=== PATIENT | female | born 1970 | race African-American/Black ===

== ENCOUNTER 2017-10-27 12:10 | Outpatient (CLI) | payer BC ==
--- NOTE | 2017-10-27 14:22 | RAD ---
SEVEN VIEWS OF THE LUMBAR SPINE: DATE: 10/27/17. COMPARISON: None. HISTORY: Low back pain. FINDINGS: Images include frontal, bilateral oblique, neutral lateral, coned down lateral, flexion lateral, and extension lateral views. FINDINGS: The frontal radiograph demonstrates 5 lumbar-type vertebral bodies with intact pedicles on frontal im aging. The oblique imaging demonstrates no evidence for a pars defect on either side at any level. Lateral, neutral, flexion, and extension imaging demonstrates no evidence for anterolisthesis or retr olisthesis. There is mild anterior osteophyte formation at T12-L1, L1-2, and L2-3. No acute osseous abnormality. IMPRESSION: No acute findings. POS: [facility]
== END 2017-10-27 12:11 | disposition home or self-care (01) ==
LOC: RAD 12:10
PROVIDERS: ATTEND Chiropractor
DX: M54.5 Low back pain (principal)
CPT/HCPCS: 72100

== ENCOUNTER 2018-08-05 21:11 | Emergency (ER) | payer BC ==
[2018-08-05 22:41] LABS: #Basophils 0.1 thou/uL (0.0-0.2); #Eosinphils 0.1 thou/uL (0.0-0.7); #Lymphocytes 2.3 thou/uL (1.20-3.40); #Monocytes 0.6 thou/uL (0.11-0.59); #Neutrophils 4.9 thou/uL (1.40-6.50); %Basophils 0.9 % (0.0-1.0); %Eosinophils 1.6 % (0.0-10.0); %Lymphocytes 29.1 % (21.0-51.0); %Monocytes 7.5 % (0.0-10.0); %Neutrophils 60.9 % (42.0-75.0); Mean Corpuscular HGB CONC 32.8 g/dL (32.0-36.0); Mean Corpuscular Hemoglobin 28.1 pg (27.0-31.0); Mean Corpuscular Volume 85.9 fL (78.0-98.0); Mean Platelet Volume 8.2 fL (7.4-10.4); Platelet Count 318 thou/uL (130-400); RBC Distribution Width 12.8 % (11.5-14.5); Red Blood Cell (RBC) Count 4.97 mill/uL (4.20-5.40)
[2018-08-05] MEDS ORDERED: Diazepam 5 MG TAB ONE (23:03)
[2018-08-05 23:05] LABS: ALT (SGPT) 12 U/L (8-55); AST (SGOT) 13 U/L (5-34); Acetaminophen Less than 6.0 mcg/mL (10.0-30.0); Albumin 4.3 g/dL (3.5-5.0); Alcohol Less than 10 mg/dL (Less than 10); Alkaline Phosphatase 99 U/L (40-150); Anion Gap 13 mmol/L (10-20); BUN (Urea Nitrogen) 7 mg/dL (7.0-18.7); Bilirubin, Total 0.5 mg/dL (0.2-1.2); Calc. Creatinine Clearance 0 mL/min (70-130); Calcium 9.6 mg/dL (7.8-10.44); Carbon Dioxide 23 mmol/L (22-29); Chloride 104 mmol/L (98-107); Estimated GFR-MDRD Greater than 90; Globulin 4.1 g/dL (2.4-3.5); Glucose 116 mg/dL (70-105); Potassium 3.4 mmol/L (3.5-5.1); Protein, Total 8.4 g/dL (6.0-8.3); Salicylate Less than 8.0 mg/dL (15.0-30.0); Sodium 137 mmol/L (136-145)
[2018-08-05 23:06] LABS: Alcohol Less than 10 mg/dL (Less than 10); CK (CPK) 167 U/L (29-168)
== END 2018-08-06 00:55 | disposition home or self-care (01) ==
LOC: ERS 21:11
DX: F41.9 Anxiety disorder, unspecified (principal)
CPT/HCPCS: 36415; 80053; 80307; 82550; 84443; 85025; 94760

== ENCOUNTER 2018-11-13 18:25 | Emergency (ER) | payer BC ==
[2018-11-13 19:33] LABS: #Eosinphils 0.1 thou/uL (0.0-0.7); #Lymphocytes 2.1 thou/uL (1.20-3.40); #Monocytes 0.8 thou/uL (0.11-0.59); #Neutrophils 5.2 thou/uL (1.40-6.50); %Basophils 0.5 % (0.0-1.0); %Eosinophils 1.8 % (0.0-10.0); %Neutrophils 62.7 % (42.0-75.0); Hemoglobin 13.6 g/dL (12.0-16.0); Mean Corpuscular HGB CONC 34.2 g/dL (32.0-36.0); Mean Corpuscular Hemoglobin 29.4 pg (27.0-31.0); Mean Platelet Volume 8.6 fL (7.4-10.4); Platelet Count 300 thou/uL (130-400); RBC Distribution Width 12.8 % (11.5-14.5); Red Blood Cell (RBC) Count 4.63 mill/uL (4.20-5.40); White Blood Cell (WBC) Count 8.3 thou/uL (4.8-10.8)
[2018-11-13 19:36] LABS: Bilirubin Negative (Negative); Blood, Urine Negative (Negative); Clarity Clear (Clear); Glucose, Urine (Dipstick) Normal (Negative); Leukocyte Negative Leu/uL (Negative); Nitrite Negative (Negative); Protein, Urine (Dipstick) 10 mg/dL (Neg-Trace); Urobilinogen Normal mg/dL (Less than 2)
[2018-11-13 19:53] LABS: ALT (SGPT) 11 U/L (8-55); AST (SGOT) 14 U/L (5-34); Alkaline Phosphatase 93 U/L (40-110); Anion Gap 14 mmol/L (10-20); BUN (Urea Nitrogen) 15 mg/dL (7.0-18.7); Bilirubin, Total 0.3 mg/dL (0.2-1.2); Calc. Creatinine Clearance 0 mL/min (70-130); Calcium 9.5 mg/dL (7.8-10.44); Carbon Dioxide 25 mmol/L (22-29); Chloride 103 mmol/L (98-107); Estimated GFR-MDRD Greater than 90; Globulin 3.9 g/dL (2.4-3.5); Glucose 101 mg/dL (70-105); Lipase 37 U/L (8-78); Potassium 3.7 mmol/L (3.5-5.1); Protein, Total 7.9 g/dL (6.0-8.3); Sodium 138 mmol/L (136-145)
[2018-11-13] MEDS ORDERED: Dicyclomine 20 MG TAB ONE (20:10)
[2018-11-13] MEDS ORDERED: Mag-Al 1200 mg/1200 mg/30 ML UDCUP ONE (20:10)
[2018-11-13] MEDS ORDERED: Lidocaine Viscous Sol 2% 15 ml UD Cup ONE (20:10)
--- NOTE | 2018-11-14 13:28 | ULT ---
GALLBLADDER ULTRASOUND: Date: 11/13/18 HISTORY: Right upper quadrant pain. FINDINGS: Real-time imaging of the right upper quadrant shows a normal appearing gallbladder. The common duct i s normal in caliber at 4 mm. Liver shows no focal abnormalities and measures 17.0 cm in length. Techn ologist does describe some mild tenderness over the gallbladder region. Right kidney shows some minim al hydronephrosis. Patient is having renal colic type symptoms. Further evaluation with CT would be r ecommended. Pancreas region is obscured. IMPRESSION: 1. No evidence of gallstones. 2. Minimal right-sided hydronephrosis. If patient is having right flank pain, then CT would be sugge sted. POS: OFF
--- NOTE | 2018-11-19 00:12 | EKG ---
Test Reason : Blood Pressure : / mmHG Vent. Rate : 065 BPM Atrial Rate : 065 BPM P-R Int : 154 ms QRS Dur : 090 ms QT Int : 408 ms P-R-T Axes : 054 042 026 degrees QTc Int : 424 ms Normal sinus rhythm Normal ECG Confirmed by DIETER CAMPOS ([id number]), production editor GAVIN JONES ([id number]) on 11/19/2018 12:12:10 AM Referred By: Confirmed By:DIETER CAMPOS
== END 2018-11-13 22:18 | disposition home or self-care (01) ==
LOC: ERS 18:25
DX: K29.70 Gastritis, unspecified, without bleeding (principal); T39.395A Adverse effect of other nonsteroidal anti-inflammatory drugs [NSAID], initial encounter; J45.909 Unspecified asthma, uncomplicated; F41.9 Anxiety disorder, unspecified; F32.9 Major depressive disorder, single episode, unspecified; Z79.899 Other long term (current) drug therapy
CPT/HCPCS: 36415; 76705; 80053; 81003; 83690; 84484; 85025; 93005

== ENCOUNTER 2020-07-21 12:04 | Emergency (ER) | payer BC ==
[2020-07-21 13:17] LABS: #Eosinphils 0.1 thou/uL (0.0-0.7); #Lymphocytes 0.5 thou/uL (1.20-3.40); #Monocytes 0.4 thou/uL (0.11-0.59); #Neutrophils 6.4 thou/uL (1.40-6.50); %Basophils 0.3 % (0.0-1.0); %Eosinophils 0.9 % (0.0-10.0); %Lymphocytes 6.4 % (21.0-51.0); %Monocytes 5.9 % (0.0-10.0); %Neutrophils 86.6 % (42.0-75.0); Hemoglobin 13.6 g/dL (12.0-16.0); Mean Corpuscular HGB CONC 32.8 g/dL (32.0-36.0); Mean Corpuscular Hemoglobin 28.5 pg (27.0-31.0); Mean Corpuscular Volume 86.7 fL (78.0-98.0); Mean Platelet Volume 8.9 fL (7.4-10.4); Platelet Count 236 thou/uL (130-400); RBC Distribution Width 12.9 % (11.5-14.5); Red Blood Cell (RBC) Count 4.79 mill/uL (4.20-5.40); White Blood Cell (WBC) Count 7.4 thou/uL (4.8-10.8)
[2020-07-21] MEDS ORDERED: Ondansetron ODT 4 MG TAB ONE (13:31)
[2020-07-21 13:41] LABS: ALT (SGPT) 17 U/L (8-55); AST (SGOT) 17 U/L (5-34); Albumin 3.9 g/dL (3.5-5.0); Alkaline Phosphatase 99 U/L (40-110); Anion Gap 12 mmol/L (10-20); BUN (Urea Nitrogen) 11 mg/dL (9.8-20.1); Bilirubin, Total 0.5 mg/dL (0.2-1.2); Calc. Creatinine Clearance 0 mL/min (70-130); Carbon Dioxide 26 mmol/L (22-29); Chloride 103 mmol/L (98-107); Globulin 3.9 g/dL (2.4-3.5); Glucose 126 mg/dL (70-105); Potassium 3.8 mmol/L (3.5-5.1); Protein, Total 7.8 g/dL (6.0-8.3); Sodium 137 mmol/L (136-145)
[2020-07-21] MEDS ORDERED: Metoclopramide HCl 10 MG/2 ML VIAL ONE (15:36)
[2020-07-21 18:04] LABS: Bilirubin Negative (Negative); Blood, Urine Negative (Negative); Glucose, Urine (Dipstick) Negative (Negative); Ketone, Urine Negative (Negative); Leukocyte Negative (Negative); Nitrite Negative (Negative); Protein, Urine (Dipstick) Negative (Neg-Trace); Urobilinogen 0.2 mg/dL (Less than 2); pH, Urine 5.5 (5.0-9.0)
[2020-07-21 18:06] LABS: Clarity Clear (Clear); Specific Gravity, Urine 1.024 (1.002-1.036)
[2020-07-21 18:10] LABS: Bacteria/HPF None Seen HPF (None Seen); RBC/HPF 0-3 HPF (0-3); Squamous Epithelial 0-3 HPF (0-3); WBC/HPF 0-3 HPF (0-3)
[2020-07-22 11:14] LABS: SARS-CoV-2 PCR by NAA Not Detected (NotDetected)
== END 2020-07-21 18:32 | disposition home or self-care (01) ==
LOC: ERS 12:04
DX: R11.2 Nausea with vomiting, unspecified (principal); I10 Essential (primary) hypertension; E11.9 Type 2 diabetes mellitus without complications; J45.909 Unspecified asthma, uncomplicated; Z87.19 Personal history of other diseases of the digestive system; Z79.84 Long term (current) use of oral hypoglycemic drugs; Z79.899 Other long term (current) drug therapy
CPT/HCPCS: 36415; 80053; 81003; 85025; 93005; 96365; J2765; Q0162; U0003; U0005